=== PATIENT | female | born 1995 | race Caucasian/White ===

== ENCOUNTER 2017-08-16 01:37 | Emergency (ER) | payer OTHER ==
[~2017-08-16] VITALS: Ht 175.3 cm; Wt 73.8 kg
[2017-08-16 01:50] VITALS: TEMP 36.5; Ht 175.3 cm; Wt 73.8 kg
[2017-08-16] MEDS ORDERED: BCPILLS PO (03:36)
--- NOTE | 2017-08-16 03:51 | EMERGENCY ROOM VISIT NOTE ---
History First contact with patient: 01:56 Chief Complaint: FALL Stated Complaint: FELL HIT HEAD History of Present Illness The patient is a 21 year old female who presents to the Emergency Room with complaints of a fall. The patient reports that she "drank too much" and fell. She admits to drinking liquor and beer this evening. Her friend reports that the patient was holding onto a bed frame and fell, striking the back of her head on the hardwood floor. There was no loss of consciousness. The patient had 2 episodes of vomiting afterward. She denies any complaints at this time except for a very mild headache. Rates her current discomfort a /10. Review of Systems A complete 10 point review of systems was reviewed with the patient with pertinent positives and negatives as per history of present illness. All else were negative. Past Medical/Surgical History Medical Problems: (1) No significant past medical history Surgical Problems: (1) No significant past surgical history Social History Smoking Status: Never Smoker Alcohol Use: occasionally Drug Use: none Marital Status: single Housing Status: lives with roommate Occupation Status: [employer] student Current/Historical Medications Scheduled Control Pills ( Control Pills), 1 TAB PO DAILY Physical Exam Vital Signs Date Time Temp Pulse Resp B/P (MAP) Pulse Ox O2 Delivery O2 Flow Rate FiO2 08/16/17 03:56 82 16 121/69 98 08/16/17 01:50 36.5 99 16 125/80 99 Room Air Physical Exam VITALS: Vitals are noted on the nurse's note and reviewed by myself. Vital signs stable. GENERAL: This is a 21-year-old female, in no acute distress, nondiaphoretic, well-developed well-nourished. SKIN: The skin was without erythema, edema or ecchymosis. HEAD: Normocephalic atraumatic. EARS: External auditory canals clear, tympanic membranes pearly silvestre without erythema or effusion bilaterally. No hemotympanum. EYES: Pupils equal round and reactive to light and accommodation. Extraocular movements intact. MOUTH: Mucous membranes moist. Tonsils are not enlarged. Pharynx without erythema or exudate. NECK: Supple without nuchal rigidity. Cervical spine is nontender. HEART: Regular rate and rhythm without murmurs gallops or rubs. LUNGS: Clear to auscultation bilaterally without wheezes, rales or rhonchi. MUSCULOSKELETAL: Strength 5/5 throughout. NEURO: Patient was alert and oriented to person place and time, but does appear to be slightly intoxicated. Medical Decision & Procedures ER Provider Diagnostic Interpretation: CT HEAD: No acute intracranial hemorrhage or other acute intracranial abnormality. Mild left posterior scalp soft tissue swelling. No skull fracture. Radiologist: Kinza Rizzo MD Medical Decision Differential diagnosis includes concussion, subarachnoid hemorrhage, epidural hematoma, subdural hematoma, among others. The patient was evaluated as above. CT of the head was performed and read by arelirad as above, with no acute intracranial abnormalities. The patient was slightly intoxicated, but alert and oriented. Customary head injury precautions were reviewed with the patient. She verbalized understanding of my assessment and treatment planning was discharged home in good condition. Head Trauma GCS Score: 15 Medication Reconcilliation Current Medication List: was personally reviewed by me Blood Pressure Screening Patient's blood pressure: Normal blood pressure Impression Primary Impression: Closed head injury Departure Information Dispostion Home / Self-Care Condition GOOD Referrals No Doctor, Assigned (PCP) Patient Instructions My [facility] Additional Instructions You have been treated in the Emergency Department for a Closed Head Injury. CT Scan of your head/brain demonstrated no acute bleeding or other abnormalities. This does not completely rule out the risk for future damage to the brain. For pain control, you can use the following [id number] medicines (if >12 yo): - Regular strength (325mg/tab) Tylenol (acetaminophen) 2 tabs every 4-6 hours as needed. Do not exceed 12 tablets in a 24 hour period. Avoid taking more than 4 grams (4000 mg) of Tylenol per day. This includes any other sources of acetaminophen you may take on a regular basis. - Regular strength (200 mg/tab) Advil (ibuprofen) 1-2 tabs every 4-6 hours as needed. Do not exceed a dose of 3200 mg per day. You should relax in a quiet, dark place for the rest of the day. Avoid any possible triggers including: cigarette smoke, caffeine, nicotine, chocolate, wine, beer, loud noises or music, or bright lights. You should schedule a follow-up appointment in 2-3 days with [facility] for recheck. Return to the Emergency Department if your current symptoms worsen despite treatment course outlined above, or if you develop any of the following symptoms : intractable pain despite aforementioned treatment course, visual disturbances , loss of vision, unilateral weakness or facial drooping, slurring of speech, loss of coordination, or loss of consciousness. Problem Qualifiers Primary Impression: Closed head injury Encounter type: initial encounter Qualified Codes: S09.90XA - Unspecified injury of head, initial encounter
[2017-08-16 03:56] VITALS: BP 121/69; PULSE 82; O2SAT 98
--- NOTE | 2017-08-16 06:28 | DIAGNOSTIC IMAGING REPORT ---
CT HEAD WITHOUT CONTRAST (CT) CLINICAL HISTORY: Head pain status post trauma COMPARISON STUDY: August 15, 2014 TECHNIQUE: Axial CT of the brain is performed from the vertex to the skull base. IV contrast was not administered for this examination. A dose lowering technique was utilized adhering to the principles of ALARA. CT DOSE: 537.48 mGy.cm FINDINGS: No intra or extra-axial mass lesions are visualized. There is no CT evidence of acute cortical infarction. There is no evidence of midline shift. There is no acute hemorrhage. No calvarial fractures are visualized. There is minor left posterior parietal scalp swelling. There is no evidence of pathologic ventricular dilatation. There is no evidence of acute sinusitis IMPRESSION: No acute intracranial findings Electronically signed by: Baljinder Hunter M.D. 08/16/2017 6:27 AM Dictated Date/Time: 08/16/2017 6:26 AM
== END 2017-08-16 03:56 | disposition home or self-care (01) ==
LOC: C.EDB 01:39
DX: S09.90XA Unspecified injury of head, initial encounter (principal); W01.198A Fall on same level from slipping, tripping and stumbling with subsequent striking against other object, initial encounter; R40.2412 Glasgow coma scale score 13-15, at arrival to emergency department; Z79.3 Long term (current) use of hormonal contraceptives

== ENCOUNTER → 2017-09-24 | Outpatient (CLI) | payer OTHER ==
[~2017-09-24] MED LIST: BCPILLS PO
== END | disposition home or self-care (01) ==
LOC: C.LAB1850 11:12
PROVIDERS: ATTEND Physician Assistant
DX: N92.6 Irregular menstruation, unspecified (principal)